=== PATIENT | female | born 1965 | race Caucasian/White ===

== ENCOUNTER → 2018-11-06 | Outpatient (CLI) | payer BC | END | disposition home or self-care (01) | LOC: CFH 10:55 | PROVIDERS: ATTEND Nurse Practitioner | DX: Z13.820 Encounter for screening for osteoporosis (principal); Z78.0 Asymptomatic menopausal state | CPT/HCPCS: 77080 ==

== ENCOUNTER 2018-11-17 07:43 | Day surgery (SDC) | payer BC ==
[2018-11-14 10:49] VITALS: BP 122/84
[~2018-11-17] VITALS: Ht 165.1 cm; Wt 70.7 kg
[~2018-11-17 07:43] MED LIST: ALPR0.254 PO; BUPIVACAINE/PF 0.25% ONE; CARB10VI IV; DOCE20VI IV; EPINEPHRINE 1 MG/ML, 1ML ONE; ESCI10TA10 PO; LEVO75TA5 PO; MULT1TAB60 PO
[2018-11-17 08:14] VITALS: BP 122/84
[2018-11-17] MEDS ORDERED: LACTATED RINGERS 1,000 ML IV SCH (08:18)
[2018-11-17] MEDS ORDERED: LIDOCAINE-MPF 1%, 2ML INFIL ONE (08:30)
[2018-11-17] MEDS ORDERED: MIDAZOLAM 1 MG/ML, 2ML ONE (08:36)
[2018-11-17] MEDS ORDERED: FENTANYL PF 100 MCG/2ML ONE (08:37)
[2018-11-17] MEDS ORDERED: PROPOFOL 10 MG/ML, 20ML ONE (09:37)
[2018-11-17] MEDS ORDERED: DEXAMETHASONE 4 MG/ML, 1ML ONE (09:37)
[2018-11-17] MEDS ORDERED: CEFAZOLIN 1,000 MG ONE (09:37)
[2018-11-17] MEDS ORDERED: OXYcodone 5 MG/5 ML ORAL.SOL UDC ONE (10:35)
[2018-11-17] MEDS ORDERED: FENTANYL PF 100 MCG/2ML IV PRN (11:00)
[2018-11-17] MEDS ORDERED: OXYcodone 5 MG/5 ML ORAL.SOL UDC PO PRN (11:00)
== END 2018-11-17 11:55 | disposition home or self-care (01) ==
LOC: OUT 07:43
PROVIDERS: ATTEND Specialist
DX: Z45.2 Encounter for adjustment and management of vascular access device (principal); C50.919 Malignant neoplasm of unspecified site of unspecified female breast; C56.9 Malignant neoplasm of unspecified ovary; E03.9 Hypothyroidism, unspecified; F41.9 Anxiety disorder, unspecified; Z88.1 Allergy status to other antibiotic agents; Z90.710 Acquired absence of both cervix and uterus; Z90.13 Acquired absence of bilateral breasts and nipples; Z98.890 Other specified postprocedural states; Z72.89 Other problems related to lifestyle; Z80.3 Family history of malignant neoplasm of breast
CPT/HCPCS: 36590; J0171; J0690; J1100; J2250; J2704; J3010; J3490; J7120